=== PATIENT | male | born 1965 | race Caucasian/White ===

== ENCOUNTER → 2019-02-14 | Outpatient (CLI) | payer OTHER | LOC: M.MRI 08:01 | DX: M12.88 Other specific arthropathies, not elsewhere classified, other specified site (principal); M51.16 Intervertebral disc disorders with radiculopathy, lumbar region; M48.061 Spinal stenosis, lumbar region without neurogenic claudication; M51.37 Other intervertebral disc degeneration, lumbosacral region ==

== ENCOUNTER → 2019-05-05 | Outpatient (CLI) | payer OTHER | LOC: M.MRI 16:02 | DX: M50.022 Cervical disc disorder at C5-C6 level with myelopathy (principal); M48.03 Spinal stenosis, cervicothoracic region; M25.78 Osteophyte, vertebrae ==